=== PATIENT | male | born 2000 | race African-American/Black ===

== ENCOUNTER 2023-08-24 21:43 | Emergency (ER) | payer MEDICAID ==
[~2023-08-24] VITALS: Ht 177.8 cm; Wt 82.0 kg
[2023-08-24 21:46] VITALS: O2SAT 100
[2023-08-24 23:44] LABS: CHLORIDE 108 mEq/L (98-107); POTASSIUM 3.8 mEq/L (3.5-5.1); SODIUM 137 mEq/L (136-145)
[2023-08-24 23:45] LABS: CALCIUM 9.9 mg/dL (8.7-10.4); CARBON DIOXIDE 21 mEq/L (21-32)
[2023-08-24 23:50] LABS: GLUCOSE 73 mg/dL (70-105); UREA NITROGEN BLOOD 7 mg/dL (9-23)
[2023-08-24 23:52] LABS: BASOPHILS % 0.7 % (0.0-2.0); EOSINOPHILS % 1.1 % (0.0-5.0); HEMATOCRIT. 45.1 % (42.0-52.0); MEAN CORPUSCULAR HEMOGLOBIN 29.9 pg (28.0-32.0); MEAN CORPUSCULAR HGB CONC 33.2 g/dL (31.0-37.0); MEAN PLATELET VOLUME 9.5 fl (7.4-10.4); NEUTROPHILS % 48.2 % (40.0-76.0); PLATELET 230 x1000/uL (130-400); RED BLOOD CELL COUNT 5.01 mill/uL (4.7-6.1); RED CELL DISTRIBUTION WIDTH 14.4 % (11.6-14.6)
[2023-08-25] MEDS: SODIUM CHLORIDE 0.9% 1,000 ML IV ONE (01:00)
[2023-08-25] MEDS ORDERED: ACETAMINOPHEN 325MG TABLET PO ONE (02:00)
[2023-08-25 04:33] VITALS: BP 127/89; PULSE 88; RESP 20; TEMP 98
== END 2023-08-25 05:15 | disposition home or self-care (01) ==
LOC: ER 21:43
DX: R55 Syncope and collapse (principal)
CPT/HCPCS: 99284; 80048; 85025; 36415; 93005; 96360; 70450; J7030